=== PATIENT | female | born 1960 ===

== ENCOUNTER 2025-01-03 10:00 | Inpatient (IN) | payer OTHER ==
[~2025-01-03] VITALS: Ht 149.9 cm; Wt 63.0 kg
[2025-01-03] MEDS ORDERED: PRAVASTATIN SOD20 MG PO (14:59)
[2025-01-03] MEDS ORDERED: TREXALL15 MG PO (14:59)
[2025-01-03] MEDS ORDERED: FOLIC ACID0.8 M1 PO (15:00)
[2025-01-03] MEDS ORDERED: LIPOFEN150 MG PO (15:00)
[2025-01-03] MEDS ORDERED: D3-5000125 MCG PO (15:01)
[2025-01-09] MEDS ORDERED: POVIDONE-IODINE 118 ML BOTT TOP ONE ×2 (07:14→09:30)
[2025-01-09] MEDS ORDERED: BUPIVACAINE HCL/MPF 0.5% 30ML VIAL ONE (07:14)
[2025-01-09] MEDS ORDERED: CEFTRIAXONE SODIUM 2,000 MG VIAL ONE (07:15)
[2025-01-09] MEDS ORDERED: METRONIDAZOLE/SODIUM CHLORIDE 500 MG/100 ML PIGGYBACK IV ONE ×2 (07:15→09:30)
[2025-01-09] MEDS ORDERED: THROMBIN,HU/FIBRINOGEN/CALCIUM 10 ML SYRINGE TOP ONE ×2 (08:35→09:30)
[2025-01-09] MEDS ORDERED: VISTASEAL DUAL APPICATOR 1 EACH APPL TOP ONE ×2 (08:35→09:30)
[2025-01-09 09:28] LABS: RH POSITIVE
[2025-01-09] MEDS ORDERED: BUPIVACAINE HCL 30 ML VIAL IJ ONE (09:30)
[2025-01-09] MEDS ORDERED: LIDOCAINE HCL 1%/EPINEPHRINE 20ML VIAL IJ ONE (09:30)
[2025-01-09] MEDS ORDERED: CEFTRIAXONE SODIUM 2,000 MG VIAL IV ONE (09:30)
[2025-01-09] MEDS ORDERED: SUGAMMADEX SODIUM 200 MG/2 ML VIAL IV ONE (10:26)
[2025-01-09] MEDS ORDERED: ONDANSETRON HCL 2 MG/ML VIAL IV SCH (12:08)
[2025-01-09] MEDS ORDERED: RINGERS SOLUTION,LACTATED 1,000 ML IV SCH (12:08)
[2025-01-09] MEDS ORDERED: ACETAMINOPHEN 325 MG TABLET PO SCH (12:09)
[2025-01-09] MEDS ORDERED: MORPHINE SULFATE 4 MG/ML VIAL IV ONE (12:30)
[2025-01-09] MEDS ORDERED: GABAPENTIN 100 MG CAPSULE PO SCH (13:00)
[2025-01-09 13:09] LABS: HEMATOCRIT 39.8 % (36.0-45.00); HEMOGLOBIN 13.7 g/dL (12.0-15.00); MEAN CELL VOLUME 92.1 fL (80.00-100.00); MEAN CORPUSCULAR HEMOGLOBIN 31.7 pg (27.00-32.0); MEAN CORPUSCULAR HGB CONC 34.5 g/dl (32.0-36.0); PLATELET COUNT 296 K/uL (150-450); RED BLOOD COUNT 4.32 M/uL (4.00-6.00); RED CELL DISTRIBUTION WIDTH 14.5 % (11.5-14.5)
[2025-01-09 13:40] VITALS: BP 146/78
[2025-01-09 14:06] LABS: CREATININE SERUM 0.68 mg/dL (0.55-1.02); GFR 87.67; POTASSIUM 3.93 mEq/L (3.5-5.1)
[2025-01-09 16:00] VITALS: BP 114/68
[2025-01-10 00:10] VITALS: BP 92/60
[2025-01-10 06:13] LABS: HEMATOCRIT 36.7 % (36.0-45.00); HEMOGLOBIN 12.3 g/dL (12.0-15.00); MEAN CELL VOLUME 93.3 fL (80.00-100.00); MEAN CORPUSCULAR HEMOGLOBIN 31.4 pg (27.00-32.0); MEAN CORPUSCULAR HGB CONC 33.7 g/dl (32.0-36.0); PLATELET COUNT 277 K/uL (150-450); RED BLOOD COUNT 3.93 M/uL (4.00-6.00)
[2025-01-10 07:28] LABS: CALCIUM 8.6 mg/dL (8.5-10.1); CREATININE SERUM 0.76 mg/dL (0.55-1.02); GFR 77.11; POTASSIUM 3.94 mEq/L (3.5-5.1)
[2025-01-10 08:09] VITALS: BP 93/57
== END 2025-01-10 09:27 | disposition home or self-care (01) | DRG 743 ==
LOC: O/R 01-09 06:30 → SURH 01-09 07:00 → OB/GYN 01-09 12:25
PROVIDERS: Surgery; Urology; ADMIT Obstetrics & Gynecology Gynecology; ATTEND Obstetrics & Gynecology Gynecology
PROC: 0TN74ZZ Release Left Ureter, Percutaneous Endoscopic Approach (ICD-10-PCS; 2025-01-09)
PROC: 0DNW4ZZ Release Peritoneum, Percutaneous Endoscopic Approach (ICD-10-PCS; 2025-01-09)
PROC: 0DNN4ZZ Release Sigmoid Colon, Percutaneous Endoscopic Approach (ICD-10-PCS; 2025-01-09)
PROC: 0DTJ4ZZ Resection of Appendix, Percutaneous Endoscopic Approach (ICD-10-PCS; 2025-01-09)
PROC: 0T788DZ Dilation of Bilateral Ureters with Intraluminal Device, Via Natural or Artificial Opening Endoscopic (ICD-10-PCS; 2025-01-09)
PROC: 0UT94ZZ Resection of Uterus, Percutaneous Endoscopic Approach (ICD-10-PCS; principal; 2025-01-09 07:00)
PROC: 0UT74ZZ Resection of Bilateral Fallopian Tubes, Percutaneous Endoscopic Approach (ICD-10-PCS; 2025-01-09 07:00)
PROC: 0UT24ZZ Resection of Bilateral Ovaries, Percutaneous Endoscopic Approach (ICD-10-PCS; 2025-01-09 07:00)
DX: N80.03 Adenomyosis of the uterus (principal); K66.0 Peritoneal adhesions (postprocedural) (postinfection); K57.30 Diverticulosis of large intestine without perforation or abscess without bleeding; N80.123 Deep endometriosis of bilateral ovaries; M06.9 Rheumatoid arthritis, unspecified; E78.00 Pure hypercholesterolemia, unspecified; R73.01 Impaired fasting glucose